=== PATIENT | female | born 1960 ===

== ENCOUNTER 2023-07-05 05:10 | Day surgery (SDC) | payer BC ==
[2023-07-02 11:36] LABS: BASOPHILS % (AUTO) 0.8 % (0-1); EOSINOPHILS # (AUTO) 0.1 X10'3 (0-0.9); EOSINOPHILS % (AUTO) 1.8 % (0-6); LYMPHOCYTES # (AUTO) 1.4 X10'3 (1.1-4.8); MEAN CORPUSCULAR HEMOGLOBIN 32.2 PG (27.0-31.0); MEAN CORPUSCULAR HGB CONC 33.4 g/dL (33.0-36.5); MEAN CORPUSCULAR VOLUME 96.4 FL (78-98); MEAN PLATELET VOLUME 8.7 FL (7.4-10.4); MONOCYTES # (AUTO) 0.5 X10'3 (0-0.9); MONOCYTES % (AUTO) 9.4 % (2-12); NEUTROPHILS # (AUTO) 3.1 X10'3 (1.8-7.7); PRE OP HEMATOCRIT 39.5 % (35.0-45.0); PRE OP HEMOGLOBIN 13.2 g/dL (12.0-16.0); PRE OP PLATELET COUNT 249 X10'3 (140-440); PRE OP WHITE BLOOD COUNT 5.1 10'3 (4.8-10.8); RED BLOOD COUNT 4.09 X10'6 (4.20-5.60); RED CELL DISTRIBUTION WIDTH 13.2 % (11.5-14.5)
[2023-07-02 11:47] LABS: ALBUMIN 4.1 G/DL (3.4-5.0); ALBUMIN/GLOBULIN RATIO 1.1 (1.1-1.5); ALKALINE PHOSPHATASE 86 IU/L (46-116); BLOOD UREA NITROGEN 10 MG/DL (7-18); BUN/CREATININE RATIO 14.1 (10.0-20.0); CALCIUM 9.6 MG/DL (8.5-10.1); CHLORIDE 105 MMOL/L (99-107); CREATININE 0.71 MG/DL (0.40-0.90); PRE OP ALT 41 U/L (30-65); PRE OP ANION GAP 4 (8-16); PRE OP AST 38 U/L (10-37); PRE OP BILIRUB, TOTAL 0.5 MG/DL (0.0-1.0); PRE OP GLUCOSE 84 MG/DL (70-104); PRE OP POTASSIUM 3.9 MMOL/L (3.4-5.1); PRE OP SODIUM 139 MMOL/L (135-145); TOTAL PROTEIN 7.7 G/DL (6.4-8.2); eGFR 83 ML/MIN
[2023-07-02 11:58] LABS: BILIRUBIN,URINE NEGATIVE (Neg); CLARITY,URINE CLEAR (Clear); COLOR,URINE YELLOW (Yellow); GLUCOSE, URINE NEGATIVE (Neg); KETONES,URINE NEGATIVE (Neg); LEUKOCYTE ESTERASE ,URINE NEGATIVE (Neg); NITRITES, URINE NEGATIVE (Neg); OCCULT BLOOD,URINE NEGATIVE (Neg); PH,URINE 7.5 (4.8-8.0); PROTEIN,URINE NEGATIVE (Neg); UROBILINOGEN,URINE 0.2 E.U/dL (0.2-1.0)
[2023-07-02 12:07] LABS: UA COLLECTION TYPE CLN CATCH MIDSTREAM
[2023-07-02 15:09] LABS: HEMOGLOBIN A1C 5.4 % (4.5-6.2)
[~2023-07-05] VITALS: Ht 165.1 cm; Wt 50.3 kg
[2023-07-05] VITALS (7 sets, daily range): BP systolic 13–128; BP diastolic 66–84; PULSE 60–76; RESP 12–18; TEMP 97.8–98.7; O2SAT 98–100
[~2023-07-05 05:10] MED LIST: CALC-723 PO; OMEP20CA16 PO; PSYL0.4C2 PO; VITA-268 PO; ringers solution, lacted 1,000 ML IV SCH
[2023-07-05] MEDS ORDERED: cefazolin 2gm/D5W 100mL 100 ML IV ONE (05:30)
[2023-07-05] MEDS ORDERED: famotidine 20mg tablet PO ONE (05:30)
[2023-07-05] MEDS ORDERED: BUPIVAcaine/PF 2.5mg/ml (0.25%) 10ml vial ONE (06:47)
[2023-07-05] MEDS ORDERED: bacitracin 15gm ointment TP ONE (06:49)
[2023-07-05] MEDS ORDERED: sevoflurane 250ml liquid IH ONE (07:11)
[2023-07-05] MEDS ORDERED: midazolam 1 mg/ML 2ml injection ONE (07:13)
[2023-07-05] MEDS ORDERED: fentaNYL/PF 50MCG/1 ML 2ML syringe ONE (07:13)
[2023-07-05] MEDS ORDERED: propofol inj 20 ML IV ONE (08:30)
[2023-07-05] MEDS ORDERED: dexamethasone sod phosphate 4mg/ml inj. ONE (08:30)
[2023-07-05] MEDS ORDERED: ondansetron/PF 4mg/2ml inj ONE (08:30)
[2023-07-05] MEDS ORDERED: acetaminophen 1,000mg/100ml IV 100 ML IV ONE (08:32)
[2023-07-05] MEDS ORDERED: ondansetron/PF 4mg/2ml inj IV PRN (08:35)
[2023-07-05] MEDS ORDERED: morphine 4 MG/ML inj SYRINge IV PRN (08:35)
[2023-07-05] MEDS ORDERED: ringers solution, lacted 1,000 ML IV SCH (08:35)
[2023-07-05] MEDS ORDERED: hydrALAZINE 20mg/ml inj. IV PRN (08:35)
[2023-07-05] MEDS ORDERED: morphine 2 MG/ML inj. syringe IV PRN (08:35)
== END 2023-07-05 10:08 | disposition home or self-care (01) ==
LOC: PAS 05:10
PROVIDERS: ATTEND Podiatrist Foot & Ankle Surgery
DX: M21.612 Bunion of left foot (principal); M20.12 Hallux valgus (acquired), left foot; F41.9 Anxiety disorder, unspecified; Z98.890 Other specified postprocedural states; Z79.899 Other long term (current) drug therapy; Z87.19 Personal history of other diseases of the digestive system; Z88.8 Allergy status to other drugs, medicaments and biological substances; Z72.89 Other problems related to lifestyle; Z82.49 Family history of ischemic heart disease and other diseases of the circulatory system; Z81.8 Family history of other mental and behavioral disorders
CPT/HCPCS: 20900; 28297; 36415; 73620; 80053; 81003; 82948; 83036; 85025; A6223; C1713; J0131; J0690; J1100; J2250; J2405; J2704; J3010; J3490; J7030; J7120; Z7506; Z7508; Z7512; 76000; A4215; A4618; A6253; A6449; A7000